=== PATIENT | male | born 1965 | race Caucasian/White ===

== ENCOUNTER → 2017-11-19 | Day surgery (SDC) | payer BC, OTHER ==
[2017-11-06 11:03] VITALS: Ht 177.8 cm; Wt 154.6 kg
[~2017-11-19] VITALS: Ht 177.8 cm; Wt 154.6 kg
[~2017-11-19] MED LIST: FENTANYL CITRATE INJ 50 MCG/1 ML 2 ML VIAL ONE; GEMF600T3 PO; GLIP-199 PO; KETAMINE HCL INJ 50 MG/ML 10 ML VIAL ONE; LIDOCAINE HCL 2% 2 ML VIAL (20MG/ML) ONE; METF-384 PO; PROPOFOL IV EMULSION 10 MG/ML 20 ML VIAL IV ONE; RAMI10CA PO; SIMV20TA2 PO
--- NOTE | 2017-11-19 13:17 | Endo History and Physical ---
History & Physical Date of Service: Nov 19, 2017. Chief Complaint: Screening Referring Physician: JOSE Vazquez History of Present Illness For colonoscopy Past Surgical History Hx Cardiac Surgery: No Hx Internal Defibrillator: No Hx Pacemaker: No Hx Abdominal Surgery: No Hx of Implantable Prosthesis: No Hx Post-Op Nausea and Vomiting: No Hx Cancer Surgery: No Hx Thoracic Surgery: No Hx Orthopedic: Yes (LEFT KNEE ARTHROSCOPY) Hx Urinary Tract Surgery: No Family History None Social History Smoking Status: Never Smoker Hx Substance Use: No Hx Alcohol Use: Yes ("VERY SELDOM") Allergies Coded Allergies: NO KNOWN DRUG ALLERGIES (Verified Allergy, Unknown, ., 11/06/17) Current Medications Reported Home Medications Medications Dose Route/Sig Max Daily Dose Days Date Category Lopid (Gemfibrozil) 600 Mg Tab 600 Mg PO BID 11/06/17 Reported Zocor (Simvastatin) 20 Mg Tab 20 Mg PO QPM 11/06/17 Reported Ramipril 10 Mg Cap 1 Cap PO QAM 11/06/17 Reported Glipizide Er (Glipizide) 10 Mg Tab 1 Tab PO BID 11/06/17 Reported Glucophage (Metformin Hcl) 1,000 Mg Tab 1,000 Mg PO BID 11/06/17 Reported Vital Signs Weight (Kilograms): 154.55 Height (Feet): 5 Height (Inches): 10 Date Time Temp Pulse Resp B/P (MAP) Pulse Ox O2 Delivery O2 Flow Rate FiO2 11/19/17 12:58 36.6 75 18 156/89 (111) 97 Room Air Physical Exam General Appearance: + obese Respiratory/Chest: Respiratory effort: no dyspnea Cardiovascular: Heart Auscultation: RRR Abdomen: Inspection & Palpation: soft Assessment and Plan For screening colonoscopy
--- NOTE | 2017-11-19 13:36 | Discharge Instructions ---
Endoscopy Patient Instructions Date / Procedure(s) Performed Nov 19, 2017. Colonoscopy Allergy Information Coded Allergies: NO KNOWN DRUG ALLERGIES (Verified Allergy, Unknown, ., 11/06/17) Discharge Date / Findings Nov 19, 2017. Hemorrhoids Medication Instructions Stopped Medication(s): Patient stopped his metformin and glipizide. Restart Stopped Medication(s): resume meds Reported Home Medications Medications Dose Route/Sig Max Daily Dose Days Date Category Lopid (Gemfibrozil) 600 Mg Tab 600 Mg PO BID 11/06/17 Reported Zocor (Simvastatin) 20 Mg Tab 20 Mg PO QPM 11/06/17 Reported Ramipril 10 Mg Cap 1 Cap PO QAM 11/06/17 Reported Glipizide Er (Glipizide) 10 Mg Tab 1 Tab PO BID 11/06/17 Reported Glucophage (Metformin Hcl) 1,000 Mg Tab 1,000 Mg PO BID 11/06/17 Reported Provider Instructions Activity Restrictions - No exercising or heavy lifting for 24 hours. - Do not drink alcohol the day of the procedure. - Do not drive a car or operate machinery until the day after the procedure. - Do not make any important decisions or sign important papers in 24 hours after the procedure. Following Day: - Return to full activity which may include returning to work/school. Diet Start your diet with liquids and light foods (jello, soup, juice, toast). Then eat your usual diet if not nauseated. Treatment For Common After Affects For mild abdominal pain, bloating, or excessive gas: - Rest - Eat lightly - Lie on right side Follow-Up Information Follow-up with JOSE Vazquez as scheduled Anesthesia Information What You Should Know You have had a procedure that required some medicine to reduce anxiety and discomfort. This treatment is called moderate sedation. After receiving the treatment, you may be sleepy, but you will be able to breathe on your own. The effects of the treatment may last for several hours. Follow these instructions along with Activity/Diet recommendations noted above: * Do NOT do anything where dizziness or clumsiness would be dangerous. * Rest quietly at home today, then you can be up and about tomorrow. * Have a responsible person stay with you the rest of today. * You may have had an I.V. today. If so, you may take the dressing off later today. Recommendations Call your doctor if: * Trouble breathing * Continuous vomiting for more than 24 hours * Temperature above 101 degrees * Severe abdominal pain or bloating * Pain not relieved by pain medicine ordered * There is increased drainage or redness from any incision * A large amount of rectal bleeding greater than 2-3 tablespoons. (If you had a polyp/s removed or have hemorrhoids, a small amount of blood - from the rectum is to be expected.) * You have any unanswered questions or concerns. IN THE EVENT OF A SERIOUS EMERGENCY, GO TO THE NEAREST EMERGENCY ROOM Your discharge instructions were prepared by provider Raul Weller. Patient Instructions Signature Page Rudy Loya Patient (or Guardian) Signature/Date: I have read and understand the instructions given to me by my caregivers. Caregiver/RN/Doctor Signature/Date: The above-named patient and/or guardian has received patient instructions on this date. + Original Patient Signature Page (only) stays with chart. Please make copy for patient.
--- NOTE | 2017-11-19 13:39 | GI REPORT ---
Procedure Date: 11/19/2017 1:19 PM Procedure: Colonoscopy Indications: Screening for colorectal malignant neoplasm Medicines: Fentanyl 100 micrograms IV, Propofol total dose 200 mg IV, Ketamine 20 mg IV, Lidocaine 40 mg IV Complications: No immediate complications. Estimated Blood Loss: Estimated blood loss: none. Procedure: Pre-Anesthesia Assessment: - Prior to the procedure, a History and Physical was performed, and patient medications, allergies and sensitivities were reviewed. The patient's tolerance of previous anesthesia was reviewed. - The risks and benefits of the procedure and the sedation options and risks were discussed with the patient. All questions were answered and informed consent was obtained. After I obtained informed consent, the scope was passed under direct vision. Throughout the procedure, the patient's blood pressure, pulse, and oxygen saturations were monitored continuously. The scope was introduced through the anus and advanced to the cecum, identified by appendiceal orifice and ileocecal valve. The colonoscopy was performed without difficulty. The patient tolerated the procedure well. The quality of the bowel preparation was excellent. Findings: There was a medium-sized lipoma, 9 mm in diameter, in the cecum. Non-bleeding internal hemorrhoids were found during endoscopy. The hemorrhoids were mild. Impression: - Medium-sized lipoma in the cecum. - Non-bleeding internal hemorrhoids. - No specimens collected. Recommendation: - Discharge patient to home (ambulatory). - Continue present medications. - Repeat colonoscopy in 10 years for screening purposes. - Return to primary care physician PRN. Raul Weller M.D. Raul Weller MD 11/19/2017 1:39:12 PM This report has been signed electronically. Note Initiated On: 11/19/2017 1:19 PM I attest to the content of the Intraoperative Record and orders documented therein, exceptions below
[2017-11-19 14:10] VITALS: BP 120/75; PULSE 70; O2SAT 97
== END | disposition home or self-care (01) ==
LOC: C.GI 12:35
PROVIDERS: ATTEND Internal Medicine Gastroenterology
DX: Z12.11 Encounter for screening for malignant neoplasm of colon (principal); D17.5 Benign lipomatous neoplasm of intra-abdominal organs; K64.8 Other hemorrhoids; E11.9 Type 2 diabetes mellitus without complications; E78.5 Hyperlipidemia, unspecified; G47.33 Obstructive sleep apnea (adult) (pediatric); K21.9 Gastro-esophageal reflux disease without esophagitis; M19.90 Unspecified osteoarthritis, unspecified site; E66.9 Obesity, unspecified; Z68.42 Body mass index [BMI] 45.0-49.9, adult; Z79.84 Long term (current) use of oral hypoglycemic drugs; Z79.899 Other long term (current) drug therapy

== ENCOUNTER → 2018-01-21 | Outpatient (CLI) | payer OTHER ==
[~2018-01-21] MED LIST changes: -FENTANYL CITRATE INJ 50 MCG/1 ML 2 ML VIAL ONE; -KETAMINE HCL INJ 50 MG/ML 10 ML VIAL ONE; -LIDOCAINE HCL 2% 2 ML VIAL (20MG/ML) ONE; -PROPOFOL IV EMULSION 10 MG/ML 20 ML VIAL IV ONE
--- NOTE | 2018-01-21 08:16 | DIAGNOSTIC IMAGING REPORT ---
Study: Fusion CT of the sinuses HISTORY: Deviated septum. Hypertrophy nasal turbinates. FINDINGS: Mild nasal septal displacement to the right. Mild hypertrophic change of the right nasal turbinates. Left nasal turbinates are unremarkable. Minimal mucosal thickening inferior right maxillary sinus. The ostiomeatal units are patent bilaterally. Frontal and sphenoid sinuses are clear. No evidence for bony destructive process. IMPRESSION:. 1. Mild nasal septal displacement to the right. 2. Mild hypertrophic change of the mid and inferior right nasal turbinates. 3. Remainder of the study is unremarkable. Electronically signed by: Ildefonso Garza M.D. 01/21/2018 8:15 AM Dictated Date/Time: 01/21/2018 8:12 AM
== END | disposition home or self-care (01) ==
LOC: C.CTS 07:56
PROVIDERS: ATTEND Physician Assistant
DX: J34.3 Hypertrophy of nasal turbinates (principal)

== ENCOUNTER 2019-11-28 10:45 | Observation (INO) ==
--- NOTE | 2019-10-16 12:30 | PAT Medication Instructions ---
Medication Instructions Date of Service October 16, 2019 Home Medications gemfibrozil 600 mg PO BID glipizide 10 mg PO BID metformin 1,000 mg PO BID oxymetazoline [Afrin (oxymetazoline)] 1 spray INTRANASAL HS ramipril 10 mg PO QAM simvastatin 10 mg PO HS empagliflozin [Jardiance] 10 mg PO QAM ibuprofen 200 mg PO Q6H PRN ASK your surgeon for instructions ibuprofen 200 mg PO Q6H PRN STOP taking 48 hours before surgery gemfibrozil 600 mg PO BID DO NOT take the morning of surgery glipizide 10 mg PO BID metformin 1,000 mg PO BID ramipril 10 mg PO QAM empagliflozin [Jardiance] 10 mg PO QAM Take evening before surgery glipizide 10 mg PO BID metformin 1,000 mg PO BID oxymetazoline [Afrin (oxymetazoline)] 1 spray INTRANASAL HS simvastatin 10 mg PO HS Other Notes If you have any questions please call us at [phone] or [phone] or [phone] or [phone]
--- NOTE | 2019-10-20 09:42 | Anesthesiology Consultation ---
Date of Service October 20, 2019 Assessment & Plan (1) Encounter for pre-operative examination: - Hx of glidescope intubation/unsuccesful SAB: b/l inferior turbinate reduction septoplasty: 08/21/18: Grade view 1, Glidescope#4, ETT 8.0 at [facility] ("elective glidescope"). Hx Left knee scope: 10/25/10: SAB attempted- unable to get CSF- switched to GA with "easy intubation, diff mask with oral airway" at [facility]. Discussed SAB vs. GA with patient for upcoming NESAH. - Check [facility] AM DOS Chart Review Chart Review: Acceptable Risk for Surgery and Patient seen in Pre Admission Testing Teaching & Discussion Pre-Anesthesia Teaching/Discussion Notes: Instructed NPO after midnight before surgery,except medications with 15 cc of water. Medication instructions provided according to the PAT guidelines. History Surgery Operation Date: 11/28/19 07:00 Proposed Procedures p Right Anterior Total Hip Arthroplasty - Jase Santos, Height/Weight Height: 5 ft 10 in Weight: 153.8 kg Allergies Allergy/AdvReac Type Severity Reaction Status Date / Time No Known Drug Allergies Allergy Unknown . Verified 10/16/19 11:21 Medications Home Medications Medication Instructions Recorded Confirmed Last Taken gemfibrozil 600 mg PO BID 07/23/18 10/16/19 08/19/18 glipizide 10 mg PO BID 07/23/18 10/16/19 08/19/18 21:00 metformin 1,000 mg PO BID 07/23/18 10/16/19 08/19/18 21:00 oxymetazoline [Afrin 1 spray INTRANASAL HS 07/23/18 10/16/19 08/20/18 22:00 (oxymetazoline)] ramipril 10 mg PO QAM 07/23/18 10/16/19 08/20/18 06:00 simvastatin 10 mg PO HS 07/23/18 10/16/19 08/20/18 20:30 empagliflozin [Jardiance] 10 mg PO QAM 10/16/19 10/16/19 Unknown ibuprofen 200 mg PO Q6H PRN 10/16/19 10/16/19 Unknown Past Medical History Medical History Diabetes mellitus, type 2 NIDDM Hyperlipidemia Hypertension Morbid obesity Osteoarthritis Sleep apnea CPAP Exercise / Class Metabolic Activity II 4-5 Yardwork/Stairs/Walk up hill (one flight of stairs (no chest pain/no sob)) Past Family History Family History Father Family history of diabetes mellitus Past Surgical History Surgical History History of arthroscopy LEFT KNEE History of colonoscopy History of difficult intubation septoplasty, inferior turbinate reduction: 08/21/18: Grade view 1, Glidescope#4, ETT 8.0 ("elective glidescope/atraumatic) History of nasal septoplasty History of testicular surgery undescended testicle repair Past Anesthesia History Difficult Airway (septoplasty, inferior turbinate reduction: 08/21/18: Grade view 1, Glidescope#4, ETT 8.0 ("elective glidescope/atraumatic)), No Family Hx of Anesthesia Complications and Other Left knee scope: 10/25/10: SAB attempted- unable to get CSF- switched to GA with "easy intubation, diff mask with oral airway" History of PONV No Hx of PONV and No Hx of Motion Sickness Social History Smoking Status: Never smoker Do You Dip or Chew Tobacco: No Hx Alcohol Use: Yes Alcohol type: beer alcohol intake frequency: a few times a month Hx Substance Use: No substance use type: does not use Review of Systems Patient denies chest pain, shortness of breath, dyspnea on exertion, cough, wheezing, palpitations. Physical Exam Vital Signs VITALS BP 126/75 P 68 TEMP 97.8 SP02 98%RA RESP 18 PHYSICAL Full neck and c-spine range of motion. Full TMJ range of motion. TMD 4 finger breaths Mallampati Score 2 Dentition: intact Lungs: clear throughout to auscultation Cardiac: regular rate and rhythm, no murmurs noted Spine: normal Carotid arteries: negative bruit Extremities: no edema Short, thick neck Testing Laboratory Results 10/20/19 10:01 10/20/19 10:01 PT 10.4 Seconds (9.0-12.0) 10/20/19 10:01 INR 1.0 (0.9-1.1) 10/20/19 10:01 APTT 26.3 Seconds (21.0-31.0) 10/20/19 10:01 Hemoglobin A1c 6.6 % (4.5-5.6) H 10/20/19 10:01 Blood Type B Positive 10/20/19 10:01 Antibody Screen NEGATIVE 10/20/19 10:01 Electrocardiogram Date: 10/20/19 NSR at 63bpm. Low voltage QRS. No significant change compared to 07/26/18. Chest X-Ray Date: 10/20/19 Findings: + NAD
--- NOTE | 2019-10-20 10:47 | XRay Report ---
XR chest Pre-admission PA/Lat CLINICAL HISTORY: Preoperative evaluation. COMPARISON STUDY: Chest radiograph September 28, 2010. FINDINGS: Lung volumes are normal. Lungs are clear. There is no pneumothorax or pleural effusion. Car diac size is normal. Mediastinal contours are normal. There is no evidence for pulmonary edema. IMPRESSION: No acute cardiopulmonary findings. Electronically signed by: Orlin Maldonado M.D. 10/20/2019 10:46 AM
[2019-10-20 12:33] LABS: Basophils # (auto) 0.05 K/uL (0-0.2); Basophils % (auto) 0.8 %; Eosinophils # (auto) 0.36 K/uL (0-0.5); Eosinophils % (auto) 5.5 %; Hematocrit (blood only) 44.3 % (42-52); Hemoglobin 14.9 g/dL (14.0-18.0); Immature Granulocytes # (auto) 0.01 K/uL (0.00-0.02); Immature Granulocytes % (auto) 0.2 %; Lymphocytes # (auto) 1.93 K/uL (1.2-3.4); Lymphocytes % (auto) 29.7 %; Mean Corpuscular Hemoglobin 28.9 pg (25-34); Mean Corpuscular Hgb Conc 33.6 g/dL (32-36); Mean Corpuscular Volume 85.9 fL (80-100); Mean Platelet Volume 10.4 fL (7.4-10.4); Monocytes # (auto) 0.45 K/uL (0.11-0.59); Monocytes % (auto) 6.9 %; Neutrophils % (auto) 56.9 %; Platelet Count 235 K/uL (130-400); RDW Coefficient of Variation 13.1 % (11.5-14.5); Red Blood Count 5.16 M/uL (4.7-6.1)
[2019-10-20 12:51] LABS: Partial Thromboplastin Time 26.3 Seconds (21.0-31.0); Prothrombin Time 10.4 Seconds (9.0-12.0)
[2019-10-20 13:00] LABS: Estimated Average Glucose 143 mg/dl; Hemoglobin A1C 6.6 % (4.5-5.6)
[2019-10-20 13:07] LABS: BUN Creatinine Ratio 22.1 (10-20); Calcium 9.8 mg/dl (8.5-10.1); Creatinine Clr Calc Pharmacy 130.9 ml/min; Est GFR (Non-African American) 89.8; Potassium 4.2 mmol/L (3.5-5.1)
--- NOTE | 2019-11-27 07:54 | History & Physical Report ---
Date of Service November 27, 2019 Assessment & Plan (1) Osteoarthritis of right hip: We will proceed with a right total hip arthroplasty. Postoperatively he will be started on aspirin for DVT prophylaxis and kept overnight in the hospital for postoperative medical management. He plans to use energy physical therapy upon discharge. Present on Admission?: Yes History of Present Illness Chief Complaint: Primary osteoarthritis of the right hip Primary Care Provider: JACQUELINE Siddiqui Rudy is a pleasant 54-year-old male who presented my office with chronic increasing right hip and groin pain. X-rays and clinical examination have been diagnostic for primary osteoarthritis of the right hip. After failing conservative treatment, he has elected to proceed with a right total hip arthroplasty. Allergies Allergy/AdvReac Type Severity Reaction Status Date / Time No Known Drug Allergies Allergy Unknown . Verified 10/16/19 11:21 Home Medications Home Medications Medication Instructions Recorded Confirmed Type gemfibrozil 600 mg PO BID 07/23/18 10/16/19 History glipizide 10 mg PO BID 07/23/18 10/16/19 History metformin 1,000 mg PO BID 07/23/18 10/16/19 History oxymetazoline [Afrin 1 spray INTRANASAL HS 07/23/18 10/16/19 History (oxymetazoline)] ramipril 10 mg PO QAM 07/23/18 10/16/19 History simvastatin 10 mg PO HS 07/23/18 10/16/19 History empagliflozin [Jardiance] 10 mg PO QAM 10/16/19 10/16/19 History ibuprofen 200 mg PO Q6H PRN 10/16/19 10/16/19 History Past Med/Surg History Medical History Diabetes mellitus, type 2 NIDDM Hyperlipidemia Hypertension Morbid obesity Osteoarthritis Sleep apnea CPAP Surgical History History of arthroscopy LEFT KNEE History of colonoscopy History of difficult intubation septoplasty, inferior turbinate reduction: 08/21/18: Grade view 1, Glidescope#4, ETT 8.0 ("elective glidescope/atraumatic) History of nasal septoplasty History of testicular surgery undescended testicle repair Family History Father Family history of diabetes mellitus Social History Preferred Language: Samoan Communication Ability: Effective Ap Processor Required: No Beliefs That Will Affect Care: None Current Living Situation: Spouse Feels Safe at Home: Yes Smoking Status: Never smoker Second Hand Exposure: Yes (as a child) ; Hx Alcohol Use: Yes Alcohol type: beer Hx Substance Use: No Review of Systems All systems reviewed & are unremarkable except as noted in HPI & below Physical Exam Constitutional: WD/WN, vitals as above Eyes: PERRL, conjunctivae normal, anicteric sclerae ENMT: external ear and nose normal, oropharynx normal Neck: trachea midline, no thyromegaly Respiratory: normal respiratory effort Cardiovascular: RRR, no murmur, no edema Gastrointestinal (Abdomen): normal bowel sounds, soft, nontender, no hepatosplenomegaly Musculoskeletal: Physical examination of the right hip reveals decreased range of motion with flexion, internal and external rotation. There is significant groin pain with forced internal rotation of the hip his leg lengths are essentially equal. Psychiatric: A+Ox3, euthymic affect Results & Data Diagnostic Findings Radiographs of the right hip and pelvis demonstrate advanced osteoarthritis with joint space narrowing osteophyte formation and [id number] articulation.
[~2019-11-28 10:45] MED LIST changes: +ACETAMINOPHEN 500 MG TAB PO SCH; +BUPIVACAINE 0.5 % 5 MG/1 ML PF 10ML VIAL ONE; +CEFAZOLIN 3000MG 72.5 ML IV SCH; +FAMOTIDINE 20 MG TAB PO SCH; +GABAPENTIN 600 MG DOSE PO SCH; -GEMF600T3 PO; -GLIP-199 PO; +LR 500ML BOLUS, THEN 15ML/HR IV SCH; +LR 60ML/HR IV SCH; -METF-384 PO; -RAMI10CA PO; +ROPIVACAINE 0.5% HCL/PF 150 MG, BUPIVACAINE 0.5% MPF 30 ML, EPINEPHrine 30MG/30ML (OR U... INSTIL SCH; -SIMV20TA2 PO; +TRANEXAMIC ACID 1,000 MG **IV Intra-op IV SCH; +TRANEXAMIC ACID 1,000 MG **IV Pre-op IV SCH; +dexAMETHasone 4 MG TAB PO SCH
--- NOTE | 2019-11-28 11:55 | History & Physical Bridge Note ---
Date of Service November 28, 2019 History & Physical Bridge Note I have examined the patient, reviewed the History & Physical and in the interval since the performance of the History & Physical I have noted the following changes of clinical significance: no changes noted
[2019-11-28] MEDS ORDERED: ONDANSETRON INJ 2 MG/ML 2 ML VIAL IV PRN ×2 (12:02→16:52)
[2019-11-28] MEDS ORDERED: ePHEDrine sulfate 50 MG/ML AMP IV PRN (12:02)
[2019-11-28] MEDS ORDERED: fentaNYL citrate 100 MCG/2 ML VIAL IV PRN (12:02)
[2019-11-28] MEDS ORDERED: ATROPINE SULFATE 0.1 MG/ML 10ML SYR IV PRN (12:02)
[2019-11-28] MEDS ORDERED: fentaNYL citrate 100 MCG/2 ML VIAL ONE (12:19)
[2019-11-28] MEDS ORDERED: LIDOCAINE HCL 2% 2 ML VIAL/AMP(20MG/ML) INFIL ONE (12:19)
[2019-11-28] MEDS ORDERED: MIDAZOLAM HCL 1 MG/ML 2ML VIAL ONE ×4 (12:19→14:23)
[2019-11-28] MEDS ORDERED: PROPOFOL IV EMULSION 10 MG/ML 20 ML VIAL IV ONE (12:19)
[2019-11-28] MEDS ORDERED: DEXAMETHASONE SOD INJ 4 MG/ML VIAL ONE (12:19)
[2019-11-28] MEDS ORDERED: ONDANSETRON INJ 2 MG/ML 2 ML VIAL ONE (12:19)
[2019-11-28] MEDS ORDERED: ORTHO JOINT ANESTHETIC ONE (12:21)
[2019-11-28] MEDS ORDERED: DexMEDEtomidine HCL IV 100 MCG/ML VIAL ONE (12:41)
[2019-11-28] MEDS ORDERED: KETAMINE HCL INJ 50 MG/ML 10 ML VIAL ONE (13:58)
[2019-11-28] MEDS ORDERED: GLYCOPYRROLATE 0.2 MG/ML VIAL ONE (14:00)
[2019-11-28] MEDS ORDERED: PHENYLEPHRINE HCL 10 MG/ML VIAL ONE (14:14)
--- NOTE | 2019-11-28 15:24 | Operative Report ---
PG Post Operative Report Pre & Post Diagnosis Operation Date: 11/28/19 13:20 Pre-Op Diagnosis: RIGHT HIP DEGENERATIVE JOINT DISEASE Post-Op Diagnosis: RIGHT HIP DEGENERATIVE JOINT DISEASE I identified the patient and participated in the time-out.: Yes Procedure Operation Date: 11/28/19 13:20 Actual Procedures p Right Anterior Total Hip Arthroplasty, Uncemented(Right) - Jase Santos DO Surgeon Jase Santos, Life Manager Jase Raya PAC Estimated Blood Loss 400 Findings Consistent with Post-Op Diagnosis Specimens Right femoral head Complications none Disposition Disposition: Recovery Room Indications Rudy is a 54-year-old male who presented to my office with complaints of chronic increasing right hip and groin pain. X-rays and clinical examination were diagnostic for primary osteoarthritis of the right hip. After failing conservative treatment, he has elected to proceed with a right anterior total hip arthroplasty. Description of Procedure Implants used Biomet Taperloc total hip arthroplasty system with a size 16 high offset Taperloc stem, a 54 mm G7 cup with a 25mm screw, an E1 polyethylene liner, a 40 mm ceramic head with a -6 neck. Patient arrived at the hospital for the above procedure. They were seen in the preoperative holding area and the operative extremity was identified and signed. They were given a spinal anesthetic. They were given a preoperative antibiotic and TXA. They were taken back To the operating room and laid on the table in the supine position. The leg was brought out through a Puristst leg positioner. The hip was then prepped and draped in sterile fashion. A timeout was done and the patient and the operative extremity was properly identified. An anterior approach was used. Dissection was taken down through the fascia and the tensor muscle belly was retracted laterally and the rectus was retracted medially. The circumflex vessels were identified and ligated. The capsule was then incised and tagged for later repair. The femoral neck was then cut and the femoral head was removed. The acetabulum was exposed. Time was spent doing a complete circumferential labral release. Sequential reaming of the acetabulum up to a size 53 reamer was done. Final reamings were done under fluoroscopy to ensure appropriate version. A Biomet 54 mm G7 cup was then impacted into place. A single 25 mm screw was placed. The E1 polyethylene liner was then snapped into place. Surrounding soft tissues were then injected with 100 cc of an orthopedic pain control cocktail. The proximal femur was then exposed. Sequential broaching up to a size 16 broach was done. Off that broach a size 40 head with a -6 neck was trialed. The hip was reduced and fluoroscopic images showed anatomic alignment of the implants in acceptable length. The broach was removed. The final size 16 high offset Taperloc stem was then impacted into place. A ceramic 40 mm head with a -6 neck was then impacted into place in the hip was reduced. Final fluoroscopic images showed anatomic reduction of the hip. The capsule was then closed with #1 Vicryl suture. A dilute betadyne lavage was then done for 3 minutes. The joint was then irrigated with normal saline solution. The fascia was closed with #1 PDS suture. Skin was closed with 2-0 Vicryl, cally, and a Lona VAC dressing. The patient was then transferred to a hospital bed and taken to the post anesthesia care unit in stable condition. They tolerated the procedure well. I attest to the content of the Intraoperative Record and any orders documented therein. Any exceptions are noted below.
--- NOTE | 2019-11-28 15:54 | Anesthesiology Progress Note ---
Date of Service November 28, 2019 Anesthesia Post Procedure Vital Signs Vital Signs: Temp Pulse Resp BP Pulse Ox 11/28/19 11:18 97.9 F 76 22 169/91 H 97 Transfer of Care Handoff Completed per policy Notes Mental Status: alert / awake / arousable and participated in evaluation Patient Amnestic to Procedure: Yes Nausea / Vomiting: adequately controlled Pain: adequately controlled Airway Patency, RR, SpO2: stable & adequate BP & HR: stable & adequate Hydration State: stable & adequate Neuraxial Anesthesia: was administered and sensory block is resolving Anesthetic Complications: no major complications apparent and Pt Satisfied with anesthetic care
--- NOTE | 2019-11-28 15:56 | Fluoroscopy Report ---
INTRAOPERATIVE RADIOGRAPHS CLINICAL HISTORY: Right hip arthroplasty. Fluoroscopy time: 40 seconds. FINDINGS: 2 spot fluoroscopic views from a right hip arthroplasty procedure are correlated with radio graphs dated 06/25/2019. The initial image shows surgical absence of the femoral head. The femoral jaycob m and the acetabular cup are in place. The second image shows the right hip arthroplasty in near omer omic alignment. There is no evidence of acute fracture on these fluoroscopic views. IMPRESSION: Intraoperative images from a right hip arthroplasty procedure as above. Electronically signed by: Jayson Peters M.D. 11/28/2019 3:54 PM
--- NOTE | 2019-11-28 16:28 | XRay Report ---
AP PELVIS, CROSSTABLE LATERAL RIGHT HIP History: Right total hip arthroplasty. Degenerative arthritis. Postop. FINDINGS: The patient is status post a right total hip arthroplasty. The hardware is intact. No fract ure or dislocation. Skin cally are in place. IMPRESSION: Right total hip arthroplasty. No evidence for hardware complication ACT 112: Negative or not required by law. Electronically signed by: Jhony Calvert M.D. 11/28/2019 4:27 PM
[2019-11-28] MEDS ORDERED: HYDROmorphone INJ 0.5 MG/0.5 ML SYR IV PRN (16:52)
[2019-11-28] MEDS ORDERED: NALOXONE HCL 0.4 MG/1 ML VIAL/CARP IV PRN (16:52)
[2019-11-28] MEDS ORDERED: OXYCODONE HCL IR 5 MG TAB (IMMEDIATE RELEASE) PO PRN (16:52)
[2019-11-28] MEDS ORDERED: bisacodyL 10 MG SUPP PR PRN (16:52)
[2019-11-28] MEDS ORDERED: METOCLOPRAMIDE HCL INJ 5 MG/ML 2 ML VIAL IV PRN (16:52)
[2019-11-28] MEDS ORDERED: MAGNESIUM HYDROXIDE SUSP 30 ML UDC PO PRN (16:52)
[2019-11-28] MEDS ORDERED: PHARMACY GLYCEMIC MGMT CONSULT PRN (17:12)
[2019-11-28] MEDS ORDERED: GLUCAGON FOR INJ 1 MG VIAL IM PRN (17:15)
[2019-11-28] MEDS ORDERED: DEXTROSE 50% 50 ML SYRINGE IV PRN (17:15)
[2019-11-28] MEDS ORDERED: CARBOHYDRATES FOR HYPOGLYCEMIA PO PRN (17:15)
[2019-11-28] MEDS ORDERED: GLUCOSE 40% GEL 15 GM TUBE PO PRN (17:15)
[2019-11-28] MEDS ORDERED: NovoLIN-N (NPH) PER UNIT CHARGE SQ ONE (17:15)
[2019-11-28] MEDS ORDERED: GLUCOSE 10 TABS/TUBE PO PRN (17:15)
[2019-11-28] MEDS: KETOROLAC 30 MG/ML VIAL IV SCH (17:49)
[2019-11-28] MEDS: INSULIN ASPART 100 UNITS/ML 3 ML PEN SC SCH ×2 (17:54→20:57)
[2019-11-28] MEDS: SODIUM CHLORIDE 0.9% 1000ML 1,000 ML IV SCH (17:57)
--- NOTE | 2019-11-28 18:37 | Pharmacy Report ---
Glycemic Control Consultation - Date of Service November 28, 2019 - Scope Scope: Glycemic Pharmacist consulted for glycemic control and to write orders per [facility] inpatient glycemic control protocol - Objective Weight: 150.593 kg Accuchecks BSG (last 24hrs): 11/28/19 11/28/19 11:09 15:45 POC Glucose 123 H 199 H HbA1c: Hemoglobin A1c 6.6 % (4.5-5.6) H 10/20/19 10:01 - Recent Pertinent Medications Outpatient Anti-diabetic Regimen: * Glipizide * Metformin * Jardiance Risk Factors for Insulin Resistance: * Steroids: DXM 8mg PO preop + DXM 4mg IV intraop * Recent Surgery * Diet - Assessment & Plan Assessment & Plan: ASSESSMENT: * 54yo T2DM with adequate outpatient control per recent A1c * Pt is maintained on oral antidiabetic agents as an outpatient * Oral agents are not recommended for inpatient use d/t drug interactions, changing PO intake, and difficulty titrating for acute hyper/hypoglycemia. ADA recommends re-initiating outpatient oral agents 1-2 days prior to discharge if/when appropriate if they were held on admission. * Will hold oral agents for admission and utilize SQ basal bolus insulin regimen which is the recommended regimen for inpatient glycemic control. * Will initiate weight based insulin dosing for steroids given pre and intraop and titrate based on BSG trends. * Will dose based on adjusted body weight d/t BMI >40 PLAN FOR INPATIENT GLYCEMIC CONTROL: * Holding outpatient oral diabetes medications * Basal insulin/Steroid induced hyperglycemia * NPH 36 units (0.35 units/kg adj BW) SQ x 1 * Will re-assess need for further dosing tomorrow * Bolus insulin * NovoLog per scale ACHS or Q6hrs while NPO * Goal Range: Low 110 mg/dL - High 140 mg/dL * Correction Factor: 15 mg/dL/unit * Nutritional / Prandial insulin per carb ratio of 1 unit per 5 grams CHO consumed Discharge Recs: * A1c = 6.6% * Goal A1c <7 % * No changes needed to outpatient regimen * Please note that the plan above was derived based on current level of insulin resistance and hospital stress. These recommendations are appropriate for inpatient admission only. Plan of care upon discharge will need to be reassessed to avoid potential outpatient hypo/hyperglycemia. Thank you.
[2019-11-28] MEDS: gemfibroziL 600 MG TAB PO SCH (20:53)
[2019-11-28] MEDS: ASPIRIN 81 MG ECTAB PO SCH (20:54)
[2019-11-28] MEDS: DOCUSATE SODIUM 100 MG CAP PO SCH (20:54)
[2019-11-28] MEDS: CEFAZOLIN 2000MG 2,000 MG/15 ML SYR IV SCH (20:59)
[2019-11-28] MEDS ORDERED: SIMVASTATIN 10 MG TAB PO SCH (21:00)
[2019-11-28] MEDS ORDERED: glipiZIDE 5 MG TAB PO SCH (21:00)
[2019-11-28] MEDS ORDERED: SENNA 8.6 MG TAB PO SCH (21:00)
[2019-11-28] MEDS: ACETAMINOPHEN 500 MG TAB PO SCH (21:00)
[2019-11-29] MEDS: KETOROLAC 30 MG/ML VIAL IV SCH ×2 (00:46→05:47)
[2019-11-29] MEDS: SODIUM CHLORIDE 0.9% 1000ML 1,000 ML IV SCH (03:49)
[2019-11-29] MEDS: ACETAMINOPHEN 500 MG TAB PO SCH (05:46)
[2019-11-29] MEDS: CEFAZOLIN 2000MG 2,000 MG/15 ML SYR IV SCH (05:46)
[2019-11-29 05:49] LABS: Basophils # (auto) 0.01 K/uL (0-0.2); Basophils % (auto) 0.1 %; Hematocrit (blood only) 36.4 % (42-52); Hemoglobin 12.4 g/dL (14.0-18.0); Immature Granulocytes # (auto) 0.03 K/uL (0.00-0.02); Immature Granulocytes % (auto) 0.2 %; Lymphocytes # (auto) 1.42 K/uL (1.2-3.4); Mean Corpuscular Hemoglobin 28.5 pg (25-34); Mean Corpuscular Hgb Conc 34.1 g/dL (32-36); Mean Corpuscular Volume 83.7 fL (80-100); Mean Platelet Volume 9.9 fL (7.4-10.4); Monocytes # (auto) 0.82 K/uL (0.11-0.59); Monocytes % (auto) 6.3 %; Neutrophils # (auto) 10.68 K/uL (1.4-6.5); Neutrophils % (auto) 82.4 %; Platelet Count 206 K/uL (130-400); RDW Coefficient of Variation 12.6 % (11.5-14.5); Red Blood Count 4.35 M/uL (4.7-6.1); White Blood Count 12.96 K/uL (4.8-10.8)
[2019-11-29 06:17] LABS: BUN Creatinine Ratio 19.8 (10-20); Calcium 8.8 mg/dl (8.5-10.1); Creatinine Clr Calc Pharmacy 141.2 ml/min; Est GFR (African American) 112.6; Est GFR (Non-African American) 97.2; Potassium 4.1 mmol/L (3.5-5.1)
[2019-11-29] MEDS ORDERED: MULTIVITAMIN TAB PO SCH (09:00)
[2019-11-29] MEDS ORDERED: NON-FORMULARY MEDICATION (Empagliflozin [Jardiance] 10 MG) PO SCH (09:00)
[2019-11-29] MEDS ORDERED: ENALAPRIL MALEATE 10 MG TAB PO SCH (09:00)
[2019-11-29] MEDS: gemfibroziL 600 MG TAB PO SCH (09:05)
[2019-11-29] MEDS: ASPIRIN 81 MG ECTAB PO SCH (09:05)
[2019-11-29] MEDS: DOCUSATE SODIUM 100 MG CAP PO SCH (09:05)
[2019-11-29] MEDS: INSULIN ASPART 100 UNITS/ML 3 ML PEN SC SCH (09:07)
--- NOTE | 2019-11-29 09:16 | Orthopedic Progress Note ---
Date of Service November 29, 2019 Assessment & Plan (1) History of right hip replacement: Overall he is doing very well. He is not having much pain in the right hip. He will be seen by physical therapy this morning for ambulation and range of motion exercises. He can be discharged home later today. He will follow-up with orthopedics in 2 weeks. He is on aspirin for DVT prophylaxis. Present on Admission?: Yes Subjective Rudy was seen and examined at bedside this morning. Overall he is doing very well. Is not having much pain in the hip. He is already been up and ambulating. He has no complaints. Physical Exam Musculoskeletal: On physical examination of the left hip, the Lona VAC dressing is to suction. His leg lengths are equal. He has active dorsiflexion and plantarflexion of his left ankle. Results & Data Vital Signs (Past 12 Hours) Vital Signs Temp Pulse Resp BP BP Pulse Ox 11/29/19 07:25 36.5 C 78 16 127/67 97 11/29/19 03:00 36.4 C L 76 18 114/69 94 11/28/19 23:05 36.7 C 81 16 101/65 94 Laboratory Results H & H 10/20/19 11/29/19 Range/Units 10:01 05:26 Hgb 14.9 12.4 L (14.0-18.0) g/dL Hct 44.3 36.4 L (42-52) % Coagulation 10/20/19 Range/Units 10:01 INR 1.0 (0.9-1.1) Diagnostic Findings Postoperative x-rays of the right hip show the prosthesis to be in anatomic alignment without any evidence of fracture, dislocation, or loosening. PG Care Time/CCT Total # of Minutes Spent Total Time Spent with Patient: Total time spent is greater than 50% in coordination of care (as documented) at patient's floor/unit and/or counseling patient: Coding Level of Care Code None Diagnoses History of right hip replacement Z96.641
--- NOTE | 2019-11-29 09:20 | Discharge Summary ---
Date of Service November 29, 2019 Admission HPI Per Admitting Provider Rudy is a pleasant 54-year-old male who presented my office with chronic increasing right hip and groin pain. X-rays and clinical examination have been diagnostic for primary osteoarthritis of the right hip. After failing conservative treatment, he has elected to proceed with a right total hip arthroplasty. Principal Diagnosis Left total hip arthroplasty Discharge Data Allergies Allergy/AdvReac Type Severity Reaction Status Date / Time No Known Drug Allergies Allergy Unknown . Verified 11/28/19 11:14 Consultations 11/29/19 08:00 Consult Case Management - Discharge Planning Routine Procedures Performed Operation Date: 11/28/19 13:20 Actual Procedures p Right Anterior Total Hip Arthroplasty, Uncemented(Right) - Jase Santos DO Ordered Studies 11/28/19 13:20 FL fluoroscopy <1hr Routine FL hip RT 1V Routine Hospital Course (1) History of right hip replacement: On November 28, 2019 Rudy arrived at [facility] and underwent a right anterior total hip arthroplasty without complication. He had a spinal anesthetic. Postoperatively he was started on aspirin for DVT prophylaxis and discharged to general orthopedic floors. His hospital course was uneventful. On postop day #1 his H&H was stable and his pain was well controlled. He was able to participate well with physical therapy doing ambulation and range of motion exercises. He was then discharged to home. He will follow-up with orthopedics in 2 weeks. Total Time Total Time Spent Total Time Spent (In Minutes): 20 Discharge Plan Discharge Items Reason For Visit: RIGHT HIP DEGENERATIVE JOINT DISEASE Discharge Diagnosis: Right total hip arthroplasty Activity: As commented below Non-emergency contact: Surgeon Call non-emergency contact if: your wound has increased redness and your wound has increased drainage Follow-up/Referrals: Kathryn Martines CRNP [Primary Care Provider] - Diet: Regular Addtl Attending Provider Instructions: Activity and Therapy Recommendations: * If you are using [facility] then therapy will be provided at your home until they feel you have accomplished all of your goals. * If you are using [facility] then Physical Therapy will be provided until they feel you are ready to start Outpatient Physical Therapy. * If you are not using home therapy then Outpatient Physical Therapy should start about 3-5 days from your day of surgery. Therapy will last about 6-10 weeks * You were shown a series of exercises in the hospital. Do these exercises three times each day including the exercises you were shown in physical therapy. * Get up and walk several times each day.~ For the first four weeks, try not to stand or walk for more than one hour at a time. If you do stand or walk for more than one hour, you will not hurt anything, but your leg will likely swell.~~ * As you feel comfortable, you may change from the walker or crutches to a cane and~then to independent walking. Medications: * Narcotic You will likely be sent home from the hospital with a prescription for the narcotic pain medication that worked best throughout your stay. * Aspirin Most patients will be required to take Aspirin 81mg twice a day for 6 weeks after surgery. This is obtained [id number] and a prescription is not necessary. * Other medications may be prescribed for specific circumstances. If you have any questions, please call the office at . * Resume previous home medications unless otherwise instructed TEDs/Elastic Stockings: The white elastic stockings help limit swelling and prevent blood clots from forming in your legs. The more you wear them, the more they work. Wear them for six weeks. Dressing Care: You will likely have a purple VAC dressing after surgery. This dressing will keep the incision dry and promote early healing. After about 7 days the batteries will wear out and the VAC will lose suction. Simply remove the dressing at that time and throw everything away, including the small suction machine. Then, you may leave the cally open to air or cover them with a dry dressing so they do not rub on your pants. The cally will be removed at your 2 week follow-up appointment. Showering: You may shower immediately with the purple VAC dressing. Let the shower spray hit your opposite side and slowly pat the plastic dry. Do not soak the dressing. After the dressing is removed you may shower normally with the cally exposed. Let soapy water run over the cally and pat them dry. Things To Watch For: * Drainage from the incision site that occurs more than one week after your surgery. * Increased redness at the incision site. * Fever above 102 degrees Fahrenheit. * Unusual chest pain or shortness of breath. * Call [facility] at with any of the above problems Follow-Up Visit: Follow-up with Dr. Santos 2-3 weeks after your day of surgery. An appointment was probably scheduled when you signed-up for surgery in the office. If you have any questions call Office Instructions: More detailed instructions as well as Frequently Asked Questions were provided in a folder by our office when you signed-up for surgery. Please review these instructions when you get home. If you have any further questions or concerns, please feel free to call the office at [phone] Pending Studies at Discharge: No Stand-Alone Forms: [facility], Sm[facility] Cess[facility] Medications and DC Order Prescriptions: New oxycodone 5 mg Tablet 5 mg PO Q4H PRN (Reason: pain) Qty: 30 RF: 0 aspirin [Ecotrin Low Strength] 81 mg Tablet,Delayed Release (Dr/Ec) 81 mg PO BID 42 Days Qty: 0 RF: 0 Continued glipizide 10 mg Tablet 10 mg PO BID RF: 0 simvastatin 10 mg Tablet 10 mg PO HS RF: 0 gemfibrozil [Lopid] 600 mg Tablet 600 mg PO BID RF: 0 metformin 1,000 mg Tablet 1,000 mg PO BID RF: 0 ramipril [Altace] 10 mg Capsule 10 mg PO QAM RF: 0 oxymetazoline [Afrin (oxymetazoline)] 0.05 % Lometa,Non-Aerosol 1 spray INTRANASAL HS RF: 0 ibuprofen 200 mg Capsule 200 mg PO Q6H PRN (Reason: Pain) RF: 0 Jardiance 10 mg Tablet 10 mg PO QAM RF: 0 Krames/Other Patient Handouts: Hyperglycemia, Hypoglycemia, Diabetes Resources, Blood Sugar Check, Diabetes Healthy Meals Admission Data Admit Date/Time: 11/28/19 15:38 Attending Provider: Jase Santos Admit Provider: Jase Santos Primary Care Provider: Kathryn Martines Coding Level of Care Code D/C Day Management <30 mins Diagnoses History of right hip replacement Z96.641
[2019-11-29] MEDS ORDERED: NovoLIN-N (NPH) PER UNIT CHARGE SQ STA (10:19)
== END 2019-11-29 11:28 | disposition home or self-care (01) | DRG 470 ==
LOC: ASU 10:45 → INTOOBSV 15:38 → 3E 15:38